=== PATIENT | male | born 1960 | race Caucasian/White ===

== ENCOUNTER 2023-12-08 11:03 | Outpatient (CLI) | payer OTHER, SELFPAY ==
[2023-12-08 11:26] VITALS: PULSE 70; RESP 18; O2SAT 98
[2023-12-08] MEDS: albuterol 2.5 mg/3 mL Neb INHALATION (11:26)
[2023-12-08 11:30] VITALS: PULSE 66
== END 2023-12-08 11:04 | disposition home or self-care (01) ==
PROVIDERS: PCP Family Medicine; Visit Provider Family Medicine
DX: J45.40 Moderate persistent asthma, uncomplicated (principal)
CPT/HCPCS: 94060